=== PATIENT | female | born 1955 | race Caucasian/White ===

== ENCOUNTER 2020-12-26 23:46 | Emergency (ER) | payer MEDICARE, SELFPAY ==
[2020-12-27 00:32] VITALS: RESP 18; TEMP 36.1; O2SAT 100
[2020-12-27 01:29] VITALS: BP 124/69; PULSE 64; RESP 18; O2SAT 98
--- NOTE | 2020-12-27 01:30 | ED.GENADULT ---
HPI - General Adult General Chief complaint: Head Injury Stated complaint: Head injury Time Seen by Provider: 12/27/20 01:18 History of Present Illness HPI narrative: Patient six 5-year-old female presents the emergency department with chief complaint of scalp laceration. Patient reports that she tripped and fell struck her head reports no loss of consciousness reports being on no blood thinners. The patient states that she feels pretty good other than that she has a little area that feels sore in her scalp. Patient states that the bleeding is stopped at this point reports that she is unsure of her last tetanus shot. Related Data Allergies Allergy/AdvReac Type Severity Reaction Status Date / Time BEES Allergy Unknown Other Uncoded 12/27/20 00:47 POISON DOMINICK Allergy Unknown Other Uncoded 12/27/20 00:47 Review of Systems Review of Systems: A 10 system review of systems was completed on the patient and is negative except for what is stated in the HPI. Nursing and ancillary documentation was reviewed. Exam Narrative: GENERAL: Well-appearing, well-nourished, and in no acute distress. HEAD: Normocephalic, 1 cm laceration to the occipital region of the scalp not requiring repair. EYES: PERRLA and EOMI. ENT: Nares clear, no rhinorrhea or epistaxis. Mucous membranes moist. NECK: Supple. CHEST: Clear to auscultation. No respiratory distress. HEART: Regular rate and rhythm. No murmur heard. Normal peripheral pulses. ABDOMEN: Soft, nontender, nondistended, normal active bowel sounds. EXTREMITIES: Normal range of motion. No edema. SKIN: Warm, dry, no rash. NEURO: No focal deficits. Alert and oriented x3. PSYCH: Normal mood and affect. Course Course Emergency Course: Given the wound is less than 1 cm in size and does not gape open on exam patient was offered closure versus no closure. The patient stated that she did not wish to have sutures or topher and opted for conservative management. Vital Signs Vital signs: Vital Signs Temperature 36.1 C L 12/27/20 00:32 Respiratory Rate 18 12/27/20 00:32 Pulse Oximetry 100 12/27/20 00:32 Temperature 36.1 C L 12/27/20 00:32 Respiratory Rate 18 12/27/20 00:32 Pulse Oximetry 100 12/27/20 00:32 Medical Decision Making Vital Signs Vital Signs: Vital Signs Temperature 36.1 C L 12/27/20 00:32 Respiratory Rate 18 12/27/20 00:32 Pulse Oximetry 100 12/27/20 00:32 Temperature 36.1 C L 12/27/20 00:32 Respiratory Rate 18 12/27/20 00:32 Pulse Oximetry 100 12/27/20 00:32 Discharge Plan Discharge Clinical Impression: Laceration of scalp Qualifiers: Encounter type: initial encounter Qualified Code(s): S01.01XA - Laceration without foreign body of scalp, initial encounter Patient Disposition: Home, Self-Care Condition: Stable Instructions: Antibiotic Form, Head Laceration (ED), Laceration Without Closure (ED), Head Injury (ED) Follow-up/Referrals: Willie,Lisa Oropeza MD [Primary Care Provider] - Time of Disposition: 01:32
[2020-12-27] MEDS: TETANUS,DIPHTHERIA,AC PERTUSSIS ADULT (0.5 ML) BOOSTRIX IM (01:42)
== END 2020-12-27 01:49 | disposition home or self-care (01) ==
PROVIDERS: Emergency Provider Emergency Medicine; PCP Internal Medicine Cardiovascular Disease
DX: S01.01XA Laceration without foreign body of scalp, initial encounter (principal); Z23 Encounter for immunization; W01.0XXA Fall on same level from slipping, tripping and stumbling without subsequent striking against object, initial encounter
CPT/HCPCS: 90471; 90715; 99283